=== PATIENT | male | born 2000 | race Caucasian/White ===

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

== ENCOUNTER → 2020-02-16 | Outpatient (REF) | payer BC ==
[2020-02-16 17:10] LABS: BASO # 0.1 10^3/uL (0.0-0.2); BASO % 0.9 % (0.0-1.0); EOS % 0.7 % (0.0-3.0); HEMATOCRIT 48.5 % (42.0-52.0); HEMOGLOBIN 16.3 g/dl (13.5-17.5); LYMPH # 1.9 10^3/uL (1.5-5.0); LYMPH % 33.3 % (24.0-44.0); MEAN CORPUSCULAR HEMOGLOBIN 29.3 pg (27.0-33.0); MEAN CORPUSCULAR HGB CONC 33.6 g/dl (32.0-36.5); MEAN CORPUSCULAR VOLUME 87.2 fl (80.0-96.0); MONO # 0.8 10^3/uL (0.0-0.8); MONO % 13.4 % (0.0-5.0); NEUTROPHILS # 2.9 10^3/uL (1.5-8.5); NEUTROPHILS % 51.5 % (36.0-66.0); PLATELET COUNT, AUTOMATED 346 10^3/uL (150-450); RED BLOOD COUNT 5.56 10^6/uL (4.30-6.10); WHITE BLOOD COUNT 5.6 10^3/uL (4.0-10.0)
[2020-02-16 17:35] LABS: ALBUMIN 4.3 GM/DL (3.2-5.2); ALT/SGPT 47 U/L (12-78); BILIRUBIN,TOTAL 0.6 MG/DL (0.2-1.0); BLOOD UREA NITROGEN 10 MG/DL (7-18); CALCIUM LEVEL 9.6 MG/DL (8.5-10.1); CARBON DIOXIDE LEVEL 29 MEQ/L (21-32); CHLORIDE LEVEL 104 MEQ/L (98-107); CHOLESTEROL LEVEL 161 MG/DL (<200); CHOLESTEROL RISK RATIO 4.128 (<5); CREATININE FOR GFR 1.01 MG/DL (0.70-1.30); FERRITIN 34 NG/ML (26-388); GLUCOSE, FASTING 95 MG/DL (70-100); HDL CHOLESTEROL 39 MG/DL (>40); IRON (FE) 135 UG/DL (65-175); LDL CHOLESTEROL 100 MG/DL (<100); NON-HDL-C 122 MG/DL; POTASSIUM SERUM 4.8 MEQ/L (3.5-5.1); SODIUM LEVEL 138 MEQ/L (136-145); TOTAL PROTEIN 7.6 GM/DL (6.4-8.2); TRIGLYCERIDES LEVEL 111 MG/DL (<150)
== END ==
LOC: M LAB REF 16:46
PROVIDERS: ATTEND Nurse Practitioner Family
DX: R00.0 Tachycardia, unspecified (principal); F41.8 Other specified anxiety disorders; D50.8 Other iron deficiency anemias; Z13.9 Encounter for screening, unspecified

== ENCOUNTER → 2020-12-13 | Outpatient (CLI) | payer BC, MEDICAID ==
--- NOTE | 2020-12-14 15:37 | SLEEPCENT ---
DATE: 12/13/2020 ORDERED BY: Laine Johnson NP Nocturnal polysomnography was performed for evaluation of sleep physiology in this patient with a history of excessive somnolence and a nonrestorative sleep. Eight hours and 7 minutes of data were reviewed. There were 304 minutes of sleep identified. Sleep latency was prolonged at 117 minutes. REM latency was also prolonged at 239 minutes. Sleep architecture did improve late in the study, and there were two REM cycles noted. Overall sleep efficiency was 63%. The electrocardiogram showed a sinus rhythm with an average heart rate of 100 beats per minute. Rate ranged 80-130. EEG showed reasonably normal waveforms for wake and sleep. There was some EKG artifact. No focal events were identified. There were 191 respiratory events identified of 10 seconds in duration or greater for an apnea-hypopnea index of 37.7. The events were obstructive, not exclusive to sleep stage nor body posture though they were more frequent in the supine position. Arousals from respiratory events occurred 5.9 times per hour, and oxygen desaturations were seen into the low 80s. There was some activity in the limb EMG leads but limb movement arousal index was low at 2.3. IMPRESSION: Obstructive sleep apnea syndrome (G47.33). Apnea-hypopnea index 37.7. RECOMMENDATION: The patient should be encouraged to return to the [facility] for pressure therapy. In the interim, alcohol and sedative avoidance should be practiced and caution exercised during the operation of motor vehicles. cc: Alexandra Vargas
== END ==
LOC: M SLEEP 20:00
PROVIDERS: ATTEND Nurse Practitioner Adult Health
DX: G47.33 Obstructive sleep apnea (adult) (pediatric) (principal)

== ENCOUNTER → 2021-01-23 | Outpatient (CLI) | payer BC, MEDICAID | LOC: M SLEEP 20:00 | PROVIDERS: ATTEND Nurse Practitioner Adult Health | DX: G47.33 Obstructive sleep apnea (adult) (pediatric) (principal) ==

== ENCOUNTER 2021-06-23 15:51 | Emergency (ER) | payer BC, MEDICAID ==
[~2021-06-23] VITALS: Ht 180.3 cm; Wt 109.1 kg
[2021-06-23] MEDS ORDERED: PROZ20CA11 (16:01)
[2021-06-23 17:59] LABS: HEMATOCRIT 46.3 % (42.0-52.0); HEMOGLOBIN 16.5 g/dl (13.5-17.5); MEAN CORPUSCULAR HEMOGLOBIN 30.6 pg (27.0-33.0); MEAN CORPUSCULAR HGB CONC 35.6 g/dl (32.0-36.5); MEAN CORPUSCULAR VOLUME 85.9 fl (80.0-96.0); PLATELET COUNT, AUTOMATED 343 10^3/uL (150-450); RED BLOOD COUNT 5.39 10^6/uL (4.30-6.10); WHITE BLOOD COUNT 9.1 10^3/uL (4.0-10.0)
[2021-06-23 18:32] LABS: CPK CREATINE PHOSPHOKINASE 90 U/L (39-308); MB/CK RELATIVE INDEX 1.11 (< OR =4)
[2021-06-23 18:38] LABS: BLOOD UREA NITROGEN 14 MG/DL (7-18); CALCIUM LEVEL 9.5 MG/DL (8.5-10.1); CARBON DIOXIDE LEVEL 27 MEQ/L (21-32); CHLORIDE LEVEL 110 MEQ/L (98-107); CREATININE FOR GFR 1.07 MG/DL (0.70-1.30); GLOMERULAR FILTRATION RATE > 60.0 (>60); GLUCOSE, FASTING 101 MG/DL (70-100); POTASSIUM SERUM 4.2 MEQ/L (3.5-5.1); SODIUM LEVEL 143 MEQ/L (136-145); THYROXINE (T4) 10.5 UG/DL (4.5-12.0)
[2021-06-24 01:00] VITALS: BP 128/80
== END 2021-06-24 01:07 | disposition home or self-care (01) ==
LOC: M ED 15:51
DX: R00.2 Palpitations (principal); R00.0 Tachycardia, unspecified; R19.7 Diarrhea, unspecified; F32.A Depression, unspecified; F41.9 Anxiety disorder, unspecified; Z79.899 Other long term (current) drug therapy

== ENCOUNTER 2022-12-09 13:39 | Emergency (ER) | payer BC, MEDICAID ==
[~2022-12-09] VITALS: Ht 180.3 cm; Wt 108.5 kg
[~2022-12-09 13:39] MED LIST changes: +PROZ20CA11
[2022-12-09] MEDS ORDERED: IBUP200C25 PO (14:07)
[2022-12-09] MEDS ORDERED: TRAZ-252 (14:07)
[2022-12-09] MEDS ORDERED: LEXA1TAB (14:07)
[2022-12-09] MEDS ORDERED: ACETAMINOPHEN 500 MG TAB PO ONE (15:25)
[2022-12-09] MEDS ORDERED: ONDA4TAB6 PO (16:58)
[2022-12-09 16:59] VITALS: BP 116/78; TEMP 100.8; O2SAT 97
== END 2022-12-09 17:31 | disposition home or self-care (01) ==
LOC: M ED 16:25
DX: U07.1 COVID-19 (principal); R00.0 Tachycardia, unspecified; J45.909 Unspecified asthma, uncomplicated; F41.9 Anxiety disorder, unspecified; F32.A Depression, unspecified; F43.10 Post-traumatic stress disorder, unspecified; Z79.899 Other long term (current) drug therapy